=== PATIENT | female | born 1980 | race Caucasian/White ===

== ENCOUNTER 2020-09-07 08:01 | Day surgery (SDC) | payer OTHER ==
[~2020-09-07] VITALS: Ht 157.5 cm; Wt 49.7 kg
== END 2020-09-07 09:58 | disposition home or self-care (01) ==
LOC: ORSCSDS 08:01
PROVIDERS: Internal Medicine Gastroenterology
PROC: 0DBK8ZX Excision of Ascending Colon, Via Natural or Artificial Opening Endoscopic, Diagnostic (ICD-10-PCS; principal; 2020-09-07 09:15)
DX: K62.5 Hemorrhage of anus and rectum (principal); D12.2 Benign neoplasm of ascending colon; K64.8 Other hemorrhoids; Z87.891 Personal history of nicotine dependence
CPT/HCPCS: 88305; J2250; J2704; J7120

== ENCOUNTER 2022-09-16 22:10 | Emergency (ER) | payer BC, OTHER ==
[~2022-09-16] VITALS: Ht 157.5 cm; Wt 49.9 kg
[2022-09-16 22:28] VITALS: BP 113/68
== END 2022-09-17 00:20 | disposition home or self-care (01) ==
LOC: ER 22:10
DX: S92.351A Displaced fracture of fifth metatarsal bone, right foot, initial encounter for closed fracture (principal); W50.0XXA Accidental hit or strike by another person, initial encounter
CPT/HCPCS: 29515; 73630; 99283-25; A9270

== ENCOUNTER 2022-11-12 09:59 | Day surgery (SDC) | payer BC, OTHER ==
[2022-11-12] VITALS (8 sets, daily range): BP systolic 109–142; BP diastolic 53–80
[~2022-11-12] VITALS: Ht 157.5 cm; Wt 51.3 kg
--- NOTE | 2022-11-12 10:28 | NUR ---
Ambulatory in Day Surgery-WITH CRUTCHES. History, Chart, Medications and Allergies reviewed before start of procedure.Lungs clear T/O to Auscultation. Patient confirms NPO status and agrees with scheduled surgery. Patient reports completing Chlorhexadine shower X2 prior to admission to hospital. Patient States Post-Procedure ride home has been arranged.
== END 2022-11-12 13:43 | disposition home or self-care (01) ==
LOC: ORSCMMR 09:59 → ORD 11:15 → ORSCSDS 11:15 → ORSCMMR 13:43
PROVIDERS: Podiatrist Foot & Ankle Surgery
PROC: 0QSN04Z Reposition Right Metatarsal with Internal Fixation Device, Open Approach (ICD-10-PCS; principal; 2022-11-12 11:00)
DX: S92.351A Displaced fracture of fifth metatarsal bone, right foot, initial encounter for closed fracture (principal)
CPT/HCPCS: A9270; C1713; J0690; J1100; J1885; J2250; J2405; J2704; J3010; J7120

== ENCOUNTER 2022-11-15 20:51 | Emergency (ER) | payer BC, OTHER ==
[~2022-11-15] VITALS: Ht 157.5 cm; Wt 49.9 kg
[2022-11-15 22:38] LABS: BASOPHILS ABSOLUTE AUTO 0.03 K/mm3 (0.00-0.23); BASOPHILS PERCENT AUTO 0 % (0-2); EOSINOPHILS ABSOLUTE AUTO 0.02 K/mm3 (0.00-0.68); EOSINOPHILS PERCENT AUTO 0 % (0-6); Hematocrit 37.3 % (33.0-51.0); Hemoglobin 13.3 g/dL (11.5-16.0); IMMATURE GRAN ABSOLUTE AUTO 0.05 K/mm3 (0.00-0.10); IMMATURE GRAN PERCENT AUTO 0 % (0-1); LYMPHOCYTES ABSOLUTE AUTO 1.27 K/mm3 (0.84-5.20); LYMPHOCYTES PERCENT AUTO 9 % (21-46); MONOCYTES ABSOLUTE AUTO 0.64 K/mm3 (0.16-1.47); MONOCYTES PERCENT AUTO 5 % (4-13); Mean Corpuscular HGB Conc 35.7 g/dL (31.5-36.5); Mean Corpuscular Volume 87 fL (80-100); Mean Platelet Volume 10.8 fL (9.1-12.4); NEUTROPHILS PERCENT AUTO 86 % (41-73); Platelet Count 211 K/mm3 (150-400); RDW Coefficient Variation 11.6 % (11.7-14.2); RDW Standard Deviation 37.2 fL (35.1-46.3); Red Blood Cell Count 4.29 M/mm3 (3.80-5.20); White Blood Cell Count 14.01 K/mm3 (4.00-11.30)
[2022-11-15 23:04] LABS: Alanine Aminotransfer (ALT/SGP 26 U/L (12-78); Albumin, Blood 3.9 g/dL (3.4-5.0); Albumin/Globulin Ratio 1.2 (0.8-1.8); Alk Phos 54 U/L (50-136); Anion Gap 8 mmol/L (6-16); Aspartate Aminotrans (AST/SGOT 28 U/L (12-37); Beta HCG, Quantitative, Serum <1 mIU/mL (0-3); Bilirubin, Total 0.4 mg/dL (0.1-1.0); Blood Urea Nitrogen 11 mg/dL (8-24); Bun/Creatinine Ratio 14.6 (12.0-20.0); CO2, Blood 24 mmol/L (21-32); Calcium, Blood 9.2 mg/dL (8.5-10.1); Chloride, Blood 108 mmol/L (98-108); Creatinine, Blood 0.75 mg/dL (0.40-1.00); Globulin, Blood 3.2 g/dL (2.2-4.0); Glomerular Filtration Rate 103 (60-); Glucose, Blood 141 mg/dL (70-99); Potassium, Blood 3.7 mmol/L (3.5-5.5); Sodium, Blood 140 mmol/L (136-145); Total Protein, Blood 7.1 g/dL (6.4-8.2)
[2022-11-16] MEDS ORDERED: ONDA4ODT MM (00:48)
[2022-11-16 01:10] VITALS: BP 104/67
== END 2022-11-16 01:10 | disposition home or self-care (01) ==
LOC: ER 20:51
PROVIDERS: Emergency Medicine
DX: R11.15 Cyclical vomiting syndrome unrelated to migraine (principal); Z88.1 Allergy status to other antibiotic agents
CPT/HCPCS: 80053; 83690; 84443; 84702; 85025; 96361; 96374; 99284-25; A9270; J1630; J7030

== ENCOUNTER 2024-05-16 08:10 | Day surgery (SDC) | payer BC ==
[~2024-05-16] VITALS: Ht 157.5 cm; Wt 59.4 kg
[~2024-05-16 08:10] MED LIST: Lactated Ringer's 1,000 ML IV ONE; ONDA4ODT MM; propofoL 50 ML IV ONE
[2024-05-16] MEDS ORDERED: Lactated Ringer's 1,000 ML IV ONE (09:34)
[2024-05-16 10:20] VITALS: BP 111/78
== END 2024-05-16 10:16 | disposition home or self-care (01) ==
LOC: ORSCSDS 08:10
PROVIDERS: Surgery
PROC: 0DBK8ZX Excision of Ascending Colon, Via Natural or Artificial Opening Endoscopic, Diagnostic (ICD-10-PCS; principal; 2024-05-16 09:30)
DX: Z12.11 Encounter for screening for malignant neoplasm of colon (principal); Z86.0100 Personal history of colon polyps, unspecified; Z80.0 Family history of malignant neoplasm of digestive organs; D12.2 Benign neoplasm of ascending colon; K64.8 Other hemorrhoids; F41.9 Anxiety disorder, unspecified; R00.0 Tachycardia, unspecified; Z87.891 Personal history of nicotine dependence
CPT/HCPCS: 88305; J2704; J7120